=== PATIENT | male | born 1940 | race Caucasian/White ===

== ENCOUNTER 2021-06-16 23:04 | Inpatient (IN) ==
[2021-06-17] MEDS ORDERED: Ondansetron 4 MG/2 ML VIAL IVP PRN (02:39)
[2021-06-17] MEDS ORDERED: Naloxone 0.4 MG/ML INJ IVP PRN (02:39)
[2021-06-17] MEDS ORDERED: Acetaminophen 325 MG TABLET PO PRN (02:39)
[2021-06-17] MEDS ORDERED: Acetaminophen IV 500 MG/50 ML BAG IVPB ONE (02:41)
[2021-06-17] MEDS ORDERED: D5% in Water 1,000 ML IVC PRN (03:33)
[2021-06-17] MEDS ORDERED: *HR* Dextrose 50 % in Water (Syg) 50 ML SYRINGE IVP PRN (03:33)
[2021-06-17] MEDS ORDERED: Dextrose 4 GM Chewable Tablets PO PRN ×2 (03:33)
[2021-06-17] MEDS ORDERED: 0.9 % Sodium Chloride 1,000 ML IVC ONE ×2 (03:33→04:27)
[2021-06-17 03:38] LABS: Basophils % 0.3 %; Hemoglobin 10.5 g/dL (12.9-16.9); Immature Granulocytes % 0.2 % (0-4); Lymphocytes # 0.4 K/mcL (0.6-4.6); Lymphocytes % 6.4 %; Mean Corpuscular HGB Conc 32.8 g/dL (31.6-35.5); Mean Corpuscular Hemoglobin 28.1 pg (28.0-33.3); Mean Corpuscular Volume 85.6 fL (83.0-100.0); Mean Platelet Volume 10.1 fL (9.4-12.4); Monocytes # 0.5 K/mcL (0.0-1.3); Monocytes % 7.5 %; Neutrophils # 5.4 K/mcL (1.6-8.9); Platelet Count 130 K/mcL (140-400); Red Blood Count 3.74 M/mcL (4.19-5.50); Red Cell Distribution Width 13.5 % (11.5-14.5); Segmented Neutrophils % 85.6 %; White Blood Count 6.3 K/mcL (4.3-11.1)
[2021-06-17 03:45] LABS: INR 1.5; Prothrombin Time 16.2 Seconds (9.4-12.1)
[2021-06-17] MEDS: *HR* HYDROmorphone (PF) 1 MG/ML SYRINGE IVP PRN ×2 (03:50→08:58)
[2021-06-17] MEDS ORDERED: Vancomycin 1,250 MG/262.5 ML IV.SOLN IVPB SCH (04:00)
[2021-06-17 04:05] LABS: Alanine Aminotransferase 18 Units/L (7-52); Albumin 3.4 g/dL (3.5-5.7); Albumin/Globulin Ratio 1.2 (1.1-2.2); Alkaline Phosphatase 55 Units/L (34-104); Aspartate Amino Transferase 14 Units/L (13-39); BUN/Creatinine Ratio 23 (6-26); Bilirubin,Total 0.8 mg/dL (0.3-1.0); Blood Urea Nitrogen 31 mg/dL (8-23); Calcium 8.3 mg/dL (8.6-10.3); Carbon Dioxide 20 mEq/L (23-29); Chloride 104 mEq/L (98-107); Globulin 2.8 g/dL (2.4-3.5); Glucose 199 mg/dL (70-105); Magnesium 1.2 mg/dL (1.6-2.6); Osmolality,Calculated 294 (280-300); Phosphorous 2.9 mg/dL (2.7-4.5); Potassium 4.7 mEq/L (3.5-5.1); Sodium 136 mEq/L (136-145); Total Protein 6.2 g/dL (6.4-8.9); Troponin I < 0.03 ng/mL (< 0.04); eGFR For African Americans > 60 (> 60); eGFR For Non-African Americans 51 (> 60)
[2021-06-17 04:06] LABS: ABG Base Excess -4 mEq/L (-2 to 3); ABG HCO3 20 mEq/L (21-27); ABG Oxygen Saturation 93 % (95-98); ABG PCO2 31 mmHg (35-45); ABG PH 7.41 pH Units (7.32-7.45); ABG PO2 63 mmHg (85-104); ABG TCO2 21 mEq/L (20-26); Blood Gas Modality BiLevel; Blood Gas Pressure Support 6 cm H2O
[2021-06-17] MEDS ORDERED: Isovue-370 500 ML BOTTLE IVP ONE (04:15)
[2021-06-17] MEDS ORDERED: Magnesium Sulfate 1 GM/102 ML PIGGYBACK IVPB ONE (04:31)
[2021-06-17] MEDS: Insulin LISPRO 300 UNITS/3 ML VIAL SUBQ SCH ×4 (06:25→23:59)
[2021-06-17] MEDS: *HR* Heparin 5,000 UNIT/ML VIAL SQ SCH ×2 (06:27→17:07)
[2021-06-17] MEDS: amLODIPine 5 MG TABLET PO SCH (07:39)
[2021-06-17] MEDS: GlipiZIDE 5 MG TABLET PO SCH ×2 (07:39→17:08)
[2021-06-17] MEDS ORDERED: *HR* Pioglitazone 15 MG TABLET PO SCH (08:00)
[2021-06-17] MEDS ORDERED: *HR* Metformin 500 MG TABLET PO SCH (08:00)
[2021-06-17] MEDS: Piperacillin/Tazobactam 3.375 GM in 0.9 % Sodium Chloride Mini Bag 100 ML IVPB SCH ×2 (08:34→17:07)
[2021-06-17] MEDS ORDERED: Lisinopril-HCTZ 20-12.5mg TABLET PO SCH (09:00)
[2021-06-17] MEDS ORDERED: hydrALAZINE 25 MG TABLET PO PRN (15:39)
[2021-06-18] MEDS: Piperacillin/Tazobactam 3.375 GM in 0.9 % Sodium Chloride Mini Bag 100 ML IVPB SCH ×3 (00:38→16:13)
[2021-06-18] MEDS: *HR* HYDROmorphone (PF) 1 MG/ML SYRINGE IVP PRN (00:46)
[2021-06-18 05:30] LABS: Eosinophils % 0.1 %; Hemoglobin 10.4 g/dL (12.9-16.9); Red Cell Distribution Width 13.5 % (11.5-14.5)
[2021-06-18 05:32] LABS: Basophils % 0.4 %; Hematocrit 32.3 % (37.5-50.1); Immature Granulocytes % 11.4 % (0-4); Immature Platelets 4.2 % (1.1-6.1); Lymphocytes # 0.9 K/mcL (0.6-4.6); Lymphocytes % 10.7 %; Mean Corpuscular HGB Conc 32.2 g/dL (31.6-35.5); Mean Corpuscular Volume 86.8 fL (83.0-100.0); Mean Platelet Volume 10.9 fL (9.4-12.4); Monocytes # 0.5 K/mcL (0.0-1.3); Monocytes % 6.4 %; Nucleated Red Blood Cells 0.2 /100 WBC (0); Platelet Count 145 K/mcL (140-400); Red Blood Count 3.72 M/mcL (4.19-5.50); White Blood Count 8.5 K/mcL (4.3-11.1)
[2021-06-18] MEDS: Insulin LISPRO 300 UNITS/3 ML VIAL SUBQ SCH ×3 (05:50→17:52)
[2021-06-18 05:54] LABS: BUN/Creatinine Ratio 25 (6-26); Blood Urea Nitrogen 25 mg/dL (8-23); C-Reactive Protein > 300 mg/L (Less than 10); Calcium 8.4 mg/dL (8.6-10.3); Carbon Dioxide 21 mEq/L (23-29); Chloride 109 mEq/L (98-107); Glucose 106 mg/dL (70-105); Osmolality,Calculated 289 (280-300); Potassium 4.4 mEq/L (3.5-5.1); Sodium 137 mEq/L (136-145); eGFR For African Americans > 60 (> 60); eGFR For Non-African Americans > 60 (> 60)
[2021-06-18] MEDS: *HR* Heparin 5,000 UNIT/ML VIAL SQ SCH ×2 (06:20→17:51)
[2021-06-18] MEDS ORDERED: NON-FORMULARY MEDICATION 1 EACH EACH (Amlodipine Besylate 10 MG Tablet) PO SCH (09:00)
[2021-06-18] MEDS: amLODIPine 5 MG TABLET PO SCH (09:21)
[2021-06-18] MEDS: GlipiZIDE 5 MG TABLET PO SCH (09:22)
[2021-06-18] MEDS: Aspirin Enteric Coated 81 MG Tablet PO SCH (09:22)
[2021-06-18 11:24] LABS: Estimated Average Glucose 171 mg/dl; Hemoglobin A1C 7.6 %
[2021-06-18] MEDS: Ipratropium/Albuterol Neb 3 ML IH SCH ×3 (15:03→19:55)
[2021-06-18] MEDS: Doxycycline 100 MG in 0.9 % Sodium Chloride Mini Bag 100 ML IVPB SCH (17:51)
[2021-06-18] MEDS ORDERED: Perflutren Lipid Microsphere 1.3 ML in 0.9 % Sodium Chloride 8.7 ML IVP PRN (22:13)
[2021-06-19] MEDS: Piperacillin/Tazobactam 3.375 GM in 0.9 % Sodium Chloride Mini Bag 100 ML IVPB SCH ×3 (00:08→15:54)
[2021-06-19] MEDS: Insulin LISPRO 300 UNITS/3 ML VIAL SUBQ SCH ×5 (02:53→21:18)
[2021-06-19 03:00] LABS: Basophils % 0.3 %; Eosinophils % 0.3 %; Hematocrit 29.5 % (37.5-50.1); Hemoglobin 9.6 g/dL (12.9-16.9); Immature Granulocytes % 0.4 % (0-4); Lymphocytes # 0.7 K/mcL (0.6-4.6); Lymphocytes % 9.7 %; Mean Corpuscular HGB Conc 32.5 g/dL (31.6-35.5); Mean Corpuscular Hemoglobin 27.8 pg (28.0-33.3); Mean Corpuscular Volume 85.5 fL (83.0-100.0); Mean Platelet Volume 10.2 fL (9.4-12.4); Monocytes # 0.5 K/mcL (0.0-1.3); Monocytes % 6.6 %; Platelet Count 146 K/mcL (140-400); Red Blood Count 3.45 M/mcL (4.19-5.50); Red Cell Distribution Width 13.4 % (11.5-14.5); Segmented Neutrophils % 82.7 %; White Blood Count 7.3 K/mcL (4.3-11.1)
[2021-06-19 03:24] LABS: BUN/Creatinine Ratio 23 (6-26); Blood Urea Nitrogen 21 mg/dL (8-23); Calcium 8.4 mg/dL (8.6-10.3); Carbon Dioxide 22 mEq/L (23-29); Chloride 108 mEq/L (98-107); Glucose 98 mg/dL (70-105); Osmolality,Calculated 287 (280-300); Potassium 3.3 mEq/L (3.5-5.1); Sodium 137 mEq/L (136-145); eGFR For African Americans > 60 (> 60); eGFR For Non-African Americans > 60 (> 60)
[2021-06-19] MEDS: Ipratropium/Albuterol Neb 3 ML IH SCH ×4 (04:23→19:49)
[2021-06-19] MEDS: Doxycycline 100 MG in 0.9 % Sodium Chloride Mini Bag 100 ML IVPB SCH ×2 (05:26→17:43)
[2021-06-19] MEDS: *HR* Heparin 5,000 UNIT/ML VIAL SQ SCH ×2 (05:27→17:43)
[2021-06-19] MEDS ORDERED: Potassium Chloride Elixir 20 MEQ/15 ML UDC PO ONE (08:09)
[2021-06-19] MEDS ORDERED: Furosemide 40 MG/4 ML VIAL IVP SCH (09:00)
[2021-06-19] MEDS: Aspirin Enteric Coated 81 MG Tablet PO SCH (10:03)
[2021-06-19] MEDS: amLODIPine 5 MG TABLET PO SCH (10:03)
[2021-06-20] MEDS: Piperacillin/Tazobactam 3.375 GM in 0.9 % Sodium Chloride Mini Bag 100 ML IVPB SCH ×3 (00:33→17:18)
[2021-06-20 03:22] LABS: BUN/Creatinine Ratio 22 (6-26); Blood Urea Nitrogen 18 mg/dL (8-23); Calcium 7.8 mg/dL (8.6-10.3); Carbon Dioxide 22 mEq/L (23-29); Chloride 107 mEq/L (98-107); Glucose 173 mg/dL (70-105); Osmolality,Calculated 296 (280-300); Potassium 3.1 mEq/L (3.5-5.1); Sodium 140 mEq/L (136-145); eGFR For African Americans > 60 (> 60); eGFR For Non-African Americans > 60 (> 60)
[2021-06-20] MEDS: Ipratropium/Albuterol Neb 3 ML IH SCH ×4 (03:55→19:55)
[2021-06-20 04:42] LABS: Eosinophils % 0.5 %; Hematocrit 28.7 % (37.5-50.1); Hemoglobin 9.7 g/dL (12.9-16.9); Immature Granulocytes % 1.7 % (0-4); Lymphocytes % 14.2 %; Mean Corpuscular HGB Conc 33.8 g/dL (31.6-35.5); Mean Corpuscular Hemoglobin 28.9 pg (28.0-33.3); Mean Corpuscular Volume 85.4 fL (83.0-100.0); Mean Platelet Volume 9.9 fL (9.4-12.4); Monocytes % 12.3 %; Platelet Count 153 K/mcL (140-400); Red Blood Count 3.36 M/mcL (4.19-5.50); Red Cell Distribution Width 13.4 % (11.5-14.5); Segmented Neutrophils % 70.8 %; White Blood Count 4.2 K/mcL (4.3-11.1)
[2021-06-20 04:43] LABS: Basophils % 0.5 %; Lymphocytes # 0.6 K/mcL (0.6-4.6); Monocytes # 0.5 K/mcL (0.0-1.3)
[2021-06-20] MEDS: Doxycycline 100 MG in 0.9 % Sodium Chloride Mini Bag 100 ML IVPB SCH ×2 (05:01→17:18)
[2021-06-20] MEDS: *HR* Heparin 5,000 UNIT/ML VIAL SQ SCH ×2 (05:06→17:19)
[2021-06-20] MEDS: Aspirin Enteric Coated 81 MG Tablet PO SCH (09:46)
[2021-06-20] MEDS: amLODIPine 5 MG TABLET PO SCH (09:46)
[2021-06-20] MEDS: Potassium Chloride Elixir 20 MEQ/15 ML UDC PO SCH ×2 (09:47→22:31)
[2021-06-20] MEDS: Insulin LISPRO 300 UNITS/3 ML VIAL SUBQ SCH ×4 (09:47→22:32)
[2021-06-20] MEDS: lisinopriL 20 MG TABLET PO SCH (14:52)
[2021-06-21] MEDS: Piperacillin/Tazobactam 3.375 GM in 0.9 % Sodium Chloride Mini Bag 100 ML IVPB SCH ×4 (00:13→22:38)
[2021-06-21] MEDS: Ipratropium/Albuterol Neb 3 ML IH SCH ×4 (04:07→22:58)
[2021-06-21] MEDS: Doxycycline 100 MG in 0.9 % Sodium Chloride Mini Bag 100 ML IVPB SCH ×2 (04:35→17:09)
[2021-06-21] MEDS: *HR* Heparin 5,000 UNIT/ML VIAL SQ SCH ×2 (04:37→17:09)
[2021-06-21 06:01] LABS: Basophils % 0.6 %; Eosinophils % 1.1 %; Hematocrit 30.6 % (37.5-50.1); Hemoglobin 9.7 g/dL (12.9-16.9); Immature Granulocytes % 2.8 % (0-4); Lymphocytes # 0.7 K/mcL (0.6-4.6); Mean Corpuscular HGB Conc 31.7 g/dL (31.6-35.5); Mean Corpuscular Hemoglobin 27.6 pg (28.0-33.3); Mean Corpuscular Volume 86.9 fL (83.0-100.0); Mean Platelet Volume 9.9 fL (9.4-12.4); Monocytes # 0.5 K/mcL (0.0-1.3); Monocytes % 14.1 %; Neutrophils # 2.3 K/mcL (1.6-8.9); Platelet Count 139 K/mcL (140-400); Red Blood Count 3.52 M/mcL (4.19-5.50); Red Cell Distribution Width 13.8 % (11.5-14.5); Segmented Neutrophils % 63.4 %; White Blood Count 3.6 K/mcL (4.3-11.1)
[2021-06-21 06:19] LABS: BUN/Creatinine Ratio 17 (6-26); Blood Urea Nitrogen 15 mg/dL (8-23); Calcium 8.7 mg/dL (8.6-10.3); Carbon Dioxide 21 mEq/L (23-29); Chloride 109 mEq/L (98-107); Glucose 191 mg/dL (70-105); Osmolality,Calculated 294 (280-300); Potassium 3.7 mEq/L (3.5-5.1); Sodium 139 mEq/L (136-145); eGFR For African Americans > 60 (> 60); eGFR For Non-African Americans > 60 (> 60)
[2021-06-21] MEDS: Insulin LISPRO 300 UNITS/3 ML VIAL SUBQ SCH ×4 (07:35→22:40)
[2021-06-21] MEDS: Aspirin Enteric Coated 81 MG Tablet PO SCH (07:39)
[2021-06-21] MEDS: amLODIPine 5 MG TABLET PO SCH (07:39)
[2021-06-21] MEDS: lisinopriL 20 MG TABLET PO SCH (07:40)
[2021-06-21] MEDS ORDERED: *HR* Propofol 200 MG/20 ML VIAL IVP ONE (10:19)
[2021-06-21] MEDS ORDERED: *HR* FentaNYL (PF) 100 MCG/2 ML VIAL ONE (10:19)
[2021-06-21] MEDS ORDERED: Lidocaine -MPF 4% 5 ML AMPUL ONE (10:30)
[2021-06-21] MEDS ORDERED: Lidocaine -MPF 2% 5 ML VIAL ONE (10:30)
[2021-06-21] MEDS ORDERED: Ondansetron 4 MG/2 ML VIAL ONE (10:30)
[2021-06-21] MEDS ORDERED: Albuterol 2.5 MG/3 ML NEBULIZER IH ONE (11:58)
[2021-06-21] MEDS ORDERED: Albuterol 2.5 MG/3 ML NEBULIZER ONE (11:58)
[2021-06-21] MEDS: Furosemide 20 MG TABLET PO SCH (13:03)
[2021-06-21 14:51] LABS: Appearance of Body Fluid Clear (Clear); Volume of Body Fluid 15 mL
[2021-06-21] MEDS: Acetaminophen 325 MG TABLET PO PRN (22:37)
[2021-06-21] MEDS: Melatonin 3 MG TABLET PO PRN (22:38)
[2021-06-22 02:44] LABS: Basophils % 0.5 %; Hematocrit 27.3 % (37.5-50.1); Hemoglobin 8.8 g/dL (12.9-16.9); Immature Granulocytes % 2.6 % (0-4); Lymphocytes # 0.6 K/mcL (0.6-4.6); Lymphocytes % 14.1 %; Mean Corpuscular HGB Conc 32.2 g/dL (31.6-35.5); Mean Corpuscular Hemoglobin 27.8 pg (28.0-33.3); Mean Corpuscular Volume 86.4 fL (83.0-100.0); Mean Platelet Volume 9.8 fL (9.4-12.4); Monocytes # 0.6 K/mcL (0.0-1.3); Monocytes % 14.4 %; Neutrophils # 2.8 K/mcL (1.6-8.9); Platelet Count 145 K/mcL (140-400); Red Blood Count 3.16 M/mcL (4.19-5.50); Red Cell Distribution Width 13.7 % (11.5-14.5); Segmented Neutrophils % 67.4 %; White Blood Count 4.2 K/mcL (4.3-11.1)
[2021-06-22 03:00] LABS: BUN/Creatinine Ratio 18 (6-26); Blood Urea Nitrogen 16 mg/dL (8-23); Calcium 8.3 mg/dL (8.6-10.3); Carbon Dioxide 21 mEq/L (23-29); Chloride 108 mEq/L (98-107); Glucose 185 mg/dL (70-105); Osmolality,Calculated 288 (280-300); Potassium 3.4 mEq/L (3.5-5.1); Sodium 136 mEq/L (136-145); eGFR For African Americans > 60 (> 60); eGFR For Non-African Americans > 60 (> 60)
[2021-06-22] MEDS: Ipratropium/Albuterol Neb 3 ML IH SCH ×4 (04:25→20:20)
[2021-06-22] MEDS: *HR* Heparin 5,000 UNIT/ML VIAL SQ SCH ×2 (05:10→17:10)
[2021-06-22] MEDS: Doxycycline 100 MG in 0.9 % Sodium Chloride Mini Bag 100 ML IVPB SCH (05:10)
[2021-06-22] MEDS: *HR* HYDROmorphone (PF) 1 MG/ML SYRINGE IVP PRN (05:10)
[2021-06-22] MEDS: amLODIPine 5 MG TABLET PO SCH (09:19)
[2021-06-22] MEDS: Furosemide 20 MG TABLET PO SCH (09:19)
[2021-06-22] MEDS: Acetaminophen 325 MG TABLET PO PRN ×3 (09:19→20:24)
[2021-06-22] MEDS: lisinopriL 20 MG TABLET PO SCH (09:19)
[2021-06-22] MEDS: Aspirin Enteric Coated 81 MG Tablet PO SCH (09:19)
[2021-06-22] MEDS: Insulin LISPRO 300 UNITS/3 ML VIAL SUBQ SCH ×4 (09:20→20:23)
[2021-06-22] MEDS: Piperacillin/Tazobactam 3.375 GM in 0.9 % Sodium Chloride Mini Bag 100 ML IVPB SCH (09:20)
[2021-06-22] MEDS: levoFLOXacin 750 MG TABLET PO SCH (13:03)
[2021-06-22] MEDS: Melatonin 3 MG TABLET PO PRN (20:25)
[2021-06-23] MEDS: Ipratropium/Albuterol Neb 3 ML IH SCH ×2 (03:53→11:01)
[2021-06-23] MEDS: *HR* Heparin 5,000 UNIT/ML VIAL SQ SCH (05:07)
[2021-06-23 07:24] VITALS: TEMP 98
[2021-06-23] MEDS: amLODIPine 5 MG TABLET PO SCH (08:54)
[2021-06-23] MEDS: levoFLOXacin 750 MG TABLET PO SCH (08:54)
[2021-06-23] MEDS: Aspirin Enteric Coated 81 MG Tablet PO SCH (08:54)
[2021-06-23] MEDS: Insulin LISPRO 300 UNITS/3 ML VIAL SUBQ SCH ×2 (08:54→12:19)
[2021-06-23] MEDS: lisinopriL 20 MG TABLET PO SCH (08:54)
[2021-06-23] MEDS: Furosemide 20 MG TABLET PO SCH (08:54)
[2021-06-23 10:48] VITALS: BP 166/72; PULSE 102
[2021-06-23 14:28] VITALS: O2SAT 97
== END 2021-06-23 14:27 | disposition home or self-care (01) | DRG 871 ==
LOC: 2NENU → SUATTDRO 06-17 17:29
PROVIDERS: ADMIT Family Medicine; ATTEND Internal Medicine